=== PATIENT | female | born 1980 | race Caucasian/White ===

== ENCOUNTER → 2019-04-11 | Emergency (ER) | payer MEDICAID ==
[~2019-04-11] VITALS: Ht 170.2 cm; Wt 78.5 kg
[2019-04-11 10:02] VITALS: BP 113/81
--- NOTE | 2019-04-11 10:35 | NUR ---
Patient discharged to home in stable condition. Written and verbal after care instructions given. Patient verbalizes understanding of instruction.
== END | disposition home or self-care (01) ==
LOC: ER 10:01
DX: S90.561A Insect bite (nonvenomous), right ankle, initial encounter (principal); L53.9 Erythematous condition, unspecified; W57.XXXA Bitten or stung by nonvenomous insect and other nonvenomous arthropods, initial encounter; Y93.89 Activity, other specified; Y92.89 Other specified places as the place of occurrence of the external cause; Y99.8 Other external cause status

== ENCOUNTER 2019-11-28 18:23 | Emergency (ER) | payer MEDICAID ==
[~2019-11-28] VITALS: Ht 167.6 cm; Wt 85.3 kg
[2019-11-28 18:25] VITALS: BP 126/84
--- NOTE | 2019-11-28 18:35 | NUR ---
JESUS MANUEL CRANE TEAM COORDINATOR AT BEDSIDE FOR EVAL.
--- NOTE | 2019-11-28 18:40 | NUR ---
WET PROCESS MILLER HEAD AT BEDSIDE FOR XRAY.
--- NOTE | 2019-11-28 19:14 | NUR ---
pt received from alexandra rn for laron. pt in bed [id number]
--- NOTE | 2019-11-28 19:35 | NUR ---
Patient discharged to home in stable condition. Written and verbal after care instructions given. Patient verbalizes understanding of instruction. Pt ambulatory with a steady gait
== END 2019-11-28 19:36 | disposition home or self-care (01) ==
LOC: ER 18:25
DX: J40 Bronchitis, not specified as acute or chronic (principal); D50.9 Iron deficiency anemia, unspecified; Z88.6 Allergy status to analgesic agent; Z88.8 Allergy status to other drugs, medicaments and biological substances
CPT/HCPCS: 71045-TC

== ENCOUNTER 2021-07-08 09:16 | Emergency (ER) | payer MEDICAID ==
[~2021-07-08] VITALS: Ht 165.1 cm; Wt 74.8 kg
--- NOTE | 2021-07-08 09:30 | NUR ---
TO ER BED 11 FOR MD FRANCOIS,C/O BILATERAL HIP PAIN S/P SLIP/FALL,NO LOC.
--- NOTE | 2021-07-08 09:49 | NUR ---
DR AGUILAR AT BEDSIDE FOR EVAL.
[2021-07-08] MEDS ORDERED: KETOROLAC TROMETHAMINE INJ 60 MG/2 ML VIAL IM ONE (11:00)
[2021-07-08] MEDS ORDERED: ACETAMINOPHEN ES 500 MG TABLET PO ONE (12:00)
[2021-07-08] MEDS ORDERED: NAPR-1009 PO (12:52)
[2021-07-08] MEDS ORDERED: CYCL5TAB PO (12:52)
--- NOTE | 2021-07-08 13:39 | NUR ---
Patient discharged to home in stable condition. Written and verbal after care instructions given. Patient verbalizes understanding of instruction.
[2021-07-08 13:40] VITALS: BP 130/60
== END 2021-07-08 13:40 | disposition home or self-care (01) ==
LOC: ER 09:24
DX: M25.551 Pain in right hip (principal); M25.552 Pain in left hip; Z88.6 Allergy status to analgesic agent; Z79.899 Other long term (current) drug therapy; W01.0XXA Fall on same level from slipping, tripping and stumbling without subsequent striking against object, initial encounter; Y93.89 Activity, other specified; Y92.59 Other trade areas as the place of occurrence of the external cause; Y99.8 Other external cause status
CPT/HCPCS: 72190-TC